=== PATIENT | female | born 1985 ===

== ENCOUNTER 2018-08-16 20:18 | Emergency (ER) | payer MEDICAID ==
[~2018-08-16] VITALS: Ht 167.6 cm; Wt 77.3 kg
[2018-08-16 20:20] VITALS: Ht 167.6 cm; Wt 77.3 kg
[2018-08-16] MEDS ORDERED: AMOXICILLIN875 MG PO (20:21)
[2018-08-16] MEDS ORDERED: ZOLOFT50 MG PO (20:21)
[2018-08-16] MEDS ORDERED: IBUPROFEN800 MG PO (20:21)
[2018-08-16] MEDS ORDERED: VOLTAREN75 MG PO (21:17)
[2018-08-16 22:48] VITALS: BP 119/62
== END 2018-08-16 22:27 | disposition home or self-care (01) ==
LOC: D.ER 20:18
DX: M25.562 Pain in left knee (principal); M25.572 Pain in left ankle and joints of left foot; W18.09XA Striking against other object with subsequent fall, initial encounter; Y93.89 Activity, other specified; Y92.89 Other specified places as the place of occurrence of the external cause